=== PATIENT | female | born 1940 | race Caucasian/White ===

== ENCOUNTER 2019-06-19 08:19 | Day surgery (SDC) | payer MEDICARE, OTHER ==
[~2019-06-19] VITALS: Ht 177.8 cm; Wt 77.0 kg
[~2019-06-19 08:19] MED LIST: ACET325; ALBU90OI INH; ALBU90OI61; ALLEGRA ALLERG180 MG; ASMANEX HFA13 GM IH; ASMANEX HFA13 GM INH; DEEP SEA45 ML; DIAZ5; Dyazide 37.5-21 EACH PO; ERGO50000; Enjuvia0.3 MG; Estradiol0.5 MG PO; Flonase 0.05% N16 GM; METO50ER; METO50ER PO; MOME220I; VITAMIN D31000 UNI1 PO; ZOLP5; ZOLP5 PO
--- NOTE | 2019-06-19 09:11 | NUR ---
06/19/19 0911 Niki Rosado 1 IV MISS IN RW BY SOLEDAD UNABLE TO GET IN PAPA 1 GOOD IV IN RAC BY PT SRIDHAR
== END 2019-06-19 11:40 | disposition home or self-care (01) ==
LOC: ORSCSDS 08:19
PROVIDERS: Internal Medicine Gastroenterology
PROC: 0DBK8ZX Excision of Ascending Colon, Via Natural or Artificial Opening Endoscopic, Diagnostic (ICD-10-PCS; principal; 2019-06-19 09:45)
PROC: 0DBM8ZX Excision of Descending Colon, Via Natural or Artificial Opening Endoscopic, Diagnostic (ICD-10-PCS; principal; 2019-06-19 09:45)
PROC: 0DBL8ZX Excision of Transverse Colon, Via Natural or Artificial Opening Endoscopic, Diagnostic (ICD-10-PCS; principal; 2019-06-19 09:45)
DX: K62.5 Hemorrhage of anus and rectum (principal); Z86.010 Personal history of colon polyps; D12.4 Benign neoplasm of descending colon; D12.3 Benign neoplasm of transverse colon; D12.2 Benign neoplasm of ascending colon; K57.30 Diverticulosis of large intestine without perforation or abscess without bleeding; I10 Essential (primary) hypertension; J45.909 Unspecified asthma, uncomplicated; Z87.891 Personal history of nicotine dependence; Z79.899 Other long term (current) drug therapy
CPT/HCPCS: 88305; J2704; J7120

== ENCOUNTER → 2020-12-27 | Outpatient (CLI) | payer MEDICARE, OTHER ==
[2020-12-27 13:33] LABS: Microalb/Creat Ratio UR, Rand Unable to Calculate mg/g (0.000-30.000); Microalbumin, Random Urine <5.000 mg/L (0.000-20.000)
== END | disposition home or self-care (01) ==
LOC: LAB SHORT 08:15 → LAB 08:15 → LAB FUT 12-27 07:35
PROVIDERS: Family Medicine
DX: I10 Essential (primary) hypertension (principal)
CPT/HCPCS: 82043; 82570

== ENCOUNTER 2022-09-03 07:07 | Day surgery (SDC) | payer MEDICARE, OTHER ==
[~2022-09-03] VITALS: Ht 177.8 cm; Wt 80.6 kg
[2022-09-03] MEDS ORDERED: Aspir 8181 MG PO (07:33)
[2022-09-03] MEDS ORDERED: DIAZ5 PO (07:34)
[2022-09-03] MEDS ORDERED: MAGNESIUM OXID500 MG PO (07:35)
== END 2022-09-03 09:12 | disposition home or self-care (01) ==
LOC: ORSCSDS 07:07
PROVIDERS: Ophthalmology
PROC: 08DJ3ZZ Extraction of Right Lens, Percutaneous Approach (ICD-10-PCS; principal; 2022-09-03 08:30)
DX: H25.11 Age-related nuclear cataract, right eye (principal); I10 Essential (primary) hypertension; K21.9 Gastro-esophageal reflux disease without esophagitis; J45.909 Unspecified asthma, uncomplicated; F41.9 Anxiety disorder, unspecified; Z87.891 Personal history of nicotine dependence; Z79.82 Long term (current) use of aspirin; Z79.899 Other long term (current) drug therapy
CPT/HCPCS: J2001; J2250; J3010; J3301; J7040; V2632

== ENCOUNTER 2022-09-10 07:36 | Day surgery (SDC) | payer MEDICARE, OTHER ==
[~2022-09-10] VITALS: Ht 177.8 cm; Wt 81.1 kg
[~2022-09-10 07:36] MED LIST changes: +Aspir 8181 MG PO; +DIAZ5 PO; +MAGNESIUM OXID500 MG PO
--- NOTE | 2022-09-10 08:17 | NUR ---
09/10/22 0817 Gin Reaves AT 0815 PLEMARGIEET AT 0817
== END 2022-09-10 09:41 | disposition home or self-care (01) ==
LOC: ORSCSDS 07:36
PROVIDERS: Ophthalmology
PROC: 08RK3JZ Replacement of Left Lens with Synthetic Substitute, Percutaneous Approach (ICD-10-PCS; principal; 2022-09-10 09:00)
DX: H25.12 Age-related nuclear cataract, left eye (principal); Z96.1 Presence of intraocular lens; I10 Essential (primary) hypertension; Z87.891 Personal history of nicotine dependence; J45.909 Unspecified asthma, uncomplicated; Z79.899 Other long term (current) drug therapy; Z79.82 Long term (current) use of aspirin
CPT/HCPCS: J2001; J2250; J3010; J3301; J7040; V2632

== ENCOUNTER → 2024-11-16 | Outpatient (CLI) | payer OTHER ==
[2024-11-16 18:57] LABS: Microalb/Creat Ratio UR, Rand Unable to Calculate mg/g (0.000-30.000); Microalbumin, Random Urine <5.000 mg/L (0.000-20.000)
== END ==
LOC: LAB SHORT 11:16 → LAB 11:16
PROVIDERS: Family Medicine
DX: I10 Essential (primary) hypertension (principal); M85.80 Other specified disorders of bone density and structure, unspecified site
CPT/HCPCS: 82043; 82570